=== PATIENT | male | born 1985 | race Two or more races ===

== ENCOUNTER 2018-01-31 19:29 | Inpatient (IN) | payer MEDICAID, OTHER ==
[~2018-01-31] VITALS: Ht 162.6 cm; Wt 65.6 kg
[2018-01-31 22:27] LABS: Eosinophils # (auto) 0.4 uL; Hemoglobin 8.3 g/dL (13.5-17.5); Lymphocytes # (auto) 2.6 uL; Neutrophils # (auto) 4.8 uL
[2018-01-31 22:29] LABS: Basophils # (auto) 0 uL; Basophils % (auto) 0.5 % (0.0-2.0); Eosinophils % (auto) 4.9 % (0.0-7.0); Hematocrit 25.1 % (41.0-53.0); Lymphocytes % (auto) 28.9 % (10.0-50.0); Mean Corpuscular Hemoglobin 28.9 pg (28.0-32.0); Mean Corpuscular Hgb Conc. 33.2 g/dL (32.0-36.0); Mean Corpuscular Volume 87.1 fL (80.0-100.0); Monocytes # (auto) 1.1 uL; Monocytes % (auto) 12.1 % (0.0-12.0); Neutrophils % (auto) 53.6 % (37.0-80.0); Nucleated Red Blood Cells % 0.6 %; Platelet Count (auto) 299 10^3/uL (140-450); Red Blood Cells 2.88 10^6/uL (4.5-5.90)
[2018-01-31 22:53] LABS: Alanine Aminotransferase 18 U/L (16-61); Albumin 3.9 g/dL (3.4-5.0); Alkaline Phosphatase 47 U/L (45-117); Anion Gap 18 (5-15); Aspartate Aminotransferase 7 U/L (15-37); BUN/Creatinine Ratio 4.2; Bilirubin, Total 0.4 mg/dL (0.2-1.0); Calcium 9.3 mg/dL (8.5-10.1); Carbon Dioxide 19 mmol/L (21-32); Chloride 106 mmol/L (98-107); GFR African American 3 mL/min; GFR Non-African American 3 mL/min; Glucose 94 mg/dL (74-106); Potassium 5.3 mmol/L (3.5-5.1); Sodium 143 mmol/L (136-145); Total Protein 7.4 g/dL (6.4-8.2)
[2018-01-31 23:03] LABS: Blood Urea Nitrogen 95 mg/dL (7-18)
[2018-02-01] MEDS ORDERED: SODIUM POLYSTYRENE SULF 15GM/60ML SUSP PO ONE (03:15)
[2018-02-01] MEDS ORDERED: TEMAZEPAM 15 MG CAP PO PRN (03:15)
[2018-02-01] MEDS ORDERED: ACETAMINOPHEN 325 MG TAB PO PRN (03:15)
[2018-02-01] MEDS ORDERED: ONDANSETRON HCL 4 MG/2 ML VIAL IV PRN (03:15)
[2018-02-01 04:02] LABS: Urine Bacteria NONE SEEN /hpf (None Seen); Urine Blood Negative /uL (Negative); Urine Specific Gravity 1.008 (1.001-1.035); Urine WBC 1 /hpf (0 - 3)
[2018-02-01] MEDS: FERROUS SULFATE 325 MG TAB PO SCH ×2 (08:13→17:38)
[2018-02-01] MEDS: PANTOPRAZOLE 40 MG TAB PO SCH (08:14)
[2018-02-01] MEDS ORDERED: SODIUM CHL 0.9% 1000 ML BAG XX ONE (08:45)
[2018-02-01] MEDS ORDERED: EPOETIN ALFA 2,000 UNIT/1 ML VIAL IV ONE (08:45)
[2018-02-01] MEDS ORDERED: EPOETIN ALFA 3,000 UNIT/1 ML VIAL IV ONE (08:45)
[2018-02-01] MEDS ORDERED: LISINOPRIL 5 MG TAB PO SCH (10:00)
[2018-02-01] MEDS: CARVEDILOL 12.5 MG TAB PO SCH ×2 (10:00→21:35)
[2018-02-01] MEDS: FUROSEMIDE 40 MG TAB PO SCH (10:00)
[2018-02-01 10:45] VITALS: BP 113/79
[2018-02-01 13:00] VITALS: BP 132/75
[2018-02-01] MEDS ORDERED: CARV25TA PO (15:06)
[2018-02-01] MEDS ORDERED: LISI-275 PO (15:06)
[2018-02-01] MEDS ORDERED: FER300LQ PO (15:06)
[2018-02-01] MEDS ORDERED: FURO40TA4 PO (15:06)
[2018-02-01 16:06] VITALS: BP 140/74
[2018-02-01 17:05] VITALS: BP 147/78
[2018-02-01 20:00] VITALS: BP 137/75
[2018-02-01 22:06] VITALS: BP 137/75
[2018-02-02 05:44] VITALS: BP 112/66
[2018-02-02 06:34] LABS: Basophils # (auto) 0 uL; Basophils % (auto) 0.5 % (0.0-2.0); Eosinophils # (auto) 0.4 uL; Eosinophils % (auto) 6.2 % (0.0-7.0); Hematocrit 30.1 % (41.0-53.0); Hemoglobin 10.2 g/dL (13.5-17.5); Lymphocytes # (auto) 1.3 uL; Mean Corpuscular Hemoglobin 29.1 pg (28.0-32.0); Mean Corpuscular Hgb Conc. 33.7 g/dL (32.0-36.0); Mean Corpuscular Volume 86.3 fL (80.0-100.0); Monocytes # (auto) 0.8 uL; Monocytes % (auto) 10.7 % (0.0-12.0); Neutrophils # (auto) 4.5 uL; Neutrophils % (auto) 63.6 % (37.0-80.0); Nucleated Red Blood Cells % 0.5 %; Platelet Count (auto) 313 10^3/uL (140-450); Potassium 4.5 mmol/L (3.5-5.1); Red Blood Cells 3.49 10^6/uL (4.5-5.90); White Blood Cell 7.1 10^3/uL (4.4-10.8)
[2018-02-02 06:47] LABS: BUN/Creatinine Ratio 3.4; Calcium 9.3 mg/dL (8.5-10.1)
[2018-02-02 08:19] VITALS: BP 104/65
[2018-02-02] MEDS: CARVEDILOL 12.5 MG TAB PO SCH (10:00)
[2018-02-02] MEDS: FUROSEMIDE 40 MG TAB PO SCH (10:00)
[2018-02-02] MEDS: FERROUS SULFATE 325 MG TAB PO SCH ×2 (10:02→18:00)
[2018-02-02] MEDS: PANTOPRAZOLE 40 MG TAB PO SCH (10:02)
[2018-02-02 12:14] VITALS: BP 119/74
[2018-02-02 17:17] VITALS: BP 115/72
[2018-02-02 20:00] VITALS: BP 135/71
[2018-02-02 22:23] VITALS: BP 135/71
[2018-02-03 05:41] VITALS: BP 134/73
[2018-02-03 06:55] LABS: BUN/Creatinine Ratio 4.2; Potassium 4.8 mmol/L (3.5-5.1)
[2018-02-03 07:00] LABS: Phosphorus 9.6 mg/dL (2.5-4.90)
[2018-02-03] MEDS: FERROUS SULFATE 325 MG TAB PO SCH ×2 (08:00→17:18)
[2018-02-03 08:42] VITALS: BP 131/86
[2018-02-03] MEDS: amLODIPine BESYLATE 5 MG TAB PO SCH (08:43)
[2018-02-03] MEDS: PANTOPRAZOLE 40 MG TAB PO SCH (08:43)
[2018-02-03] MEDS ORDERED: SODIUM CHL 0.9% 1000 ML BAG XX ONE (09:30)
[2018-02-03] MEDS: SEVELAMER 800 MG TAB PO SCH ×2 (12:39→17:18)
[2018-02-03 12:41] VITALS: BP 122/73
[2018-02-03 17:03] VITALS: BP 126/74
[2018-02-03 21:52] VITALS: BP 136/84
[2018-02-04 04:19] LABS: Basophils # (auto) 0.1 uL; Basophils % (auto) 0.7 % (0.0-2.0); Eosinophils # (auto) 0.6 uL; Eosinophils % (auto) 7.8 % (0.0-7.0); Hematocrit 31.8 % (41.0-53.0); Hemoglobin 10.4 g/dL (13.5-17.5); Lymphocytes # (auto) 1.9 uL; Lymphocytes % (auto) 24.9 % (10.0-50.0); Mean Corpuscular Hemoglobin 28.1 pg (28.0-32.0); Mean Corpuscular Hgb Conc. 32.7 g/dL (32.0-36.0); Mean Corpuscular Volume 85.9 fL (80.0-100.0); Monocytes # (auto) 0.9 uL; Monocytes % (auto) 11.6 % (0.0-12.0); Neutrophils # (auto) 4.3 uL; Platelet Count (auto) 283 10^3/uL (140-450); Red Cell Distribution Width 19.4 % (11.8-14.3); White Blood Cell 7.8 10^3/uL (4.4-10.8)
[2018-02-04 04:37] VITALS: BP 126/68
[2018-02-04 04:49] LABS: Albumin 3.9 g/dL (3.4-5.0); BUN/Creatinine Ratio 3.9; Bilirubin, Total 0.5 mg/dL (0.2-1.0); Calcium 9.1 mg/dL (8.5-10.1); Total Protein 7.9 g/dL (6.4-8.2)
[2018-02-04 08:50] VITALS: BP 119/74
[2018-02-04] MEDS: PANTOPRAZOLE 40 MG TAB PO SCH (09:03)
[2018-02-04] MEDS: SEVELAMER 800 MG TAB PO SCH ×3 (09:03→17:32)
[2018-02-04] MEDS: FERROUS SULFATE 325 MG TAB PO SCH ×2 (09:04→17:32)
[2018-02-04] MEDS: amLODIPine BESYLATE 5 MG TAB PO SCH (09:04)
[2018-02-04 12:00] VITALS: BP 133/71
[2018-02-04 16:44] VITALS: BP 148/95
[2018-02-04 21:30] VITALS: BP 128/75
[2018-02-05 05:02] VITALS: BP 128/71
[2018-02-05 05:32] LABS: Basophils # (auto) 0 uL; Basophils % (auto) 0.5 % (0.0-2.0); Eosinophils # (auto) 0.7 uL; Eosinophils % (auto) 7.9 % (0.0-7.0); Hematocrit 30.8 % (41.0-53.0); Lymphocytes # (auto) 1.8 uL; Mean Corpuscular Hemoglobin 28.2 pg (28.0-32.0); Mean Corpuscular Hgb Conc. 32.6 g/dL (32.0-36.0); Mean Corpuscular Volume 86.5 fL (80.0-100.0); Monocytes % (auto) 11.6 % (0.0-12.0); Neutrophils # (auto) 5.1 uL; Platelet Count (auto) 259 10^3/uL (140-450); Red Blood Cells 3.56 10^6/uL (4.5-5.90); White Blood Cell 8.6 10^3/uL (4.4-10.8)
[2018-02-05 05:52] LABS: Red Cell Distribution Width 20.4 % (11.8-14.3)
[2018-02-05 05:56] LABS: BUN/Creatinine Ratio 4.6; Calcium 9.7 mg/dL (8.5-10.1); Potassium 4.3 mmol/L (3.5-5.1)
[2018-02-05 08:00] VITALS: BP 130/84
[2018-02-05] MEDS: SEVELAMER 800 MG TAB PO SCH ×3 (08:08→18:09)
[2018-02-05] MEDS: FERROUS SULFATE 325 MG TAB PO SCH ×2 (08:08→18:09)
[2018-02-05 09:16] VITALS: BP 130/84
[2018-02-05] MEDS: PANTOPRAZOLE 40 MG TAB PO SCH (10:42)
[2018-02-05] MEDS: amLODIPine BESYLATE 5 MG TAB PO SCH (10:44)
[2018-02-05 13:00] VITALS: BP 158/87
[2018-02-05 14:12] LABS: Hepatitis A Ab IgM Negative; Hepatitis B Core IgM Negative; Hepatitis B Surface Antigen Negative (Negative); Hepatitis C Antibody Negative (Negative)
[2018-02-05] MEDS ORDERED: AML5T PO (16:08)
[2018-02-05] MEDS ORDERED: FER325T PO (16:08)
[2018-02-05] MEDS ORDERED: SEVE800T PO (16:08)
[2018-02-05 17:00] VITALS: BP 153/97
[2018-02-05 22:00] VITALS: BP 144/85
[2018-02-06 05:00] VITALS: BP 125/71
[2018-02-06] MEDS: FERROUS SULFATE 325 MG TAB PO SCH ×2 (07:43→19:14)
[2018-02-06] MEDS: PANTOPRAZOLE 40 MG TAB PO SCH (07:43)
[2018-02-06] MEDS: SEVELAMER 800 MG TAB PO SCH ×3 (07:44→19:14)
[2018-02-06 09:00] VITALS: BP 150/91
[2018-02-06] MEDS: amLODIPine BESYLATE 5 MG TAB PO SCH (09:03)
[2018-02-06] MEDS ORDERED: SODIUM CHL 0.9% 1000 ML BAG XX ONE (11:15)
[2018-02-06] MEDS ORDERED: EPOETIN ALFA 10,000 UNIT/1 ML VIAL IV ONE (11:15)
[2018-02-06 12:26] VITALS: BP 123/64
[2018-02-06 17:10] VITALS: BP 125/71
[2018-02-06 22:00] VITALS: BP 128/75
[2018-02-07 05:30] VITALS: BP 120/73
[2018-02-07 06:15] LABS: BUN/Creatinine Ratio 4.3; Calcium 9.1 mg/dL (8.5-10.1); Potassium 4.3 mmol/L (3.5-5.1)
[2018-02-07] MEDS: SEVELAMER 800 MG TAB PO SCH ×3 (08:14→17:28)
[2018-02-07] MEDS: FERROUS SULFATE 325 MG TAB PO SCH ×2 (08:14→17:27)
[2018-02-07 09:00] VITALS: BP 113/73
[2018-02-07] MEDS: amLODIPine BESYLATE 5 MG TAB PO SCH (10:00)
[2018-02-07] MEDS: CALCITRIOL 0.25 MCG CAP PO SCH (10:28)
[2018-02-07] MEDS: PANTOPRAZOLE 40 MG TAB PO SCH (10:29)
[2018-02-07 13:00] VITALS: BP 126/76
[2018-02-07 17:00] VITALS: BP 126/73
[2018-02-07 21:30] VITALS: BP 140/91
[2018-02-08 05:00] VITALS: BP 124/69
[2018-02-08 06:44] LABS: Potassium 4.1 mmol/L (3.5-5.1)
[2018-02-08 06:55] LABS: Albumin 3.8 g/dL (3.4-5.0); BUN/Creatinine Ratio 5.1; Bilirubin, Total 0.9 mg/dL (0.2-1.0); Calcium 9.8 mg/dL (8.5-10.1); Phosphorus 8.1 mg/dL (2.5-4.90); Total Protein 7.7 g/dL (6.4-8.2)
[2018-02-08] MEDS: SEVELAMER 800 MG TAB PO SCH ×3 (07:35→17:41)
[2018-02-08] MEDS: FERROUS SULFATE 325 MG TAB PO SCH ×2 (07:35→17:41)
[2018-02-08 08:00] VITALS: BP 131/89
[2018-02-08] MEDS ORDERED: EPOETIN ALFA 10,000 UNIT/1 ML VIAL IV ONE (09:45)
[2018-02-08] MEDS: PANTOPRAZOLE 40 MG TAB PO SCH (10:00)
[2018-02-08] MEDS: CALCITRIOL 0.25 MCG CAP PO SCH (10:00)
[2018-02-08] MEDS: amLODIPine BESYLATE 5 MG TAB PO SCH (10:00)
[2018-02-08 12:00] VITALS: BP 128/76
[2018-02-08 16:00] VITALS: BP 120/76
[2018-02-08 21:30] VITALS: BP 138/76
[2018-02-09 05:00] VITALS: BP 119/66
[2018-02-09] MEDS: SEVELAMER 800 MG TAB PO SCH ×3 (07:37→17:47)
[2018-02-09] MEDS: FERROUS SULFATE 325 MG TAB PO SCH ×2 (07:37→17:47)
[2018-02-09 09:01] VITALS: BP 132/74
[2018-02-09] MEDS ORDERED: CAL025T PO (09:11)
[2018-02-09] MEDS ORDERED: AML5T PO (09:11)
[2018-02-09] MEDS: CALCITRIOL 0.25 MCG CAP PO SCH (09:50)
[2018-02-09] MEDS: PANTOPRAZOLE 40 MG TAB PO SCH (09:50)
[2018-02-09] MEDS: amLODIPine BESYLATE 5 MG TAB PO SCH (09:50)
[2018-02-09] MEDS ORDERED: SODIUM CHL 0.9% 1000 ML BAG XX ONE (10:15)
[2018-02-09] MEDS ORDERED: EPOETIN ALFA 4,000 UNIT/ML VL IV ONE (11:00)
[2018-02-09 13:00] VITALS: BP 126/75
[2018-02-09 17:00] VITALS: BP 160/66
[2018-02-09 21:51] VITALS: BP 147/84
[2018-02-10 05:00] VITALS: BP 126/71
[2018-02-10 08:17] VITALS: BP 120/79
[2018-02-10 09:01] VITALS: BP 120/79
[2018-02-10] MEDS: SEVELAMER 800 MG TAB PO SCH ×3 (09:07→18:12)
[2018-02-10] MEDS: FERROUS SULFATE 325 MG TAB PO SCH ×2 (09:07→18:12)
[2018-02-10] MEDS: amLODIPine BESYLATE 5 MG TAB PO SCH (09:58)
[2018-02-10] MEDS: PANTOPRAZOLE 40 MG TAB PO SCH (09:58)
[2018-02-10] MEDS: CALCITRIOL 0.25 MCG CAP PO SCH (09:58)
[2018-02-10 11:58] VITALS: BP 125/86
[2018-02-10 16:29] VITALS: BP 146/94
[2018-02-10 22:01] VITALS: BP 136/79
[2018-02-11 05:00] VITALS: BP 117/75
[2018-02-11 07:01] LABS: BUN/Creatinine Ratio 3.8; Calcium 9.8 mg/dL (8.5-10.1); Potassium 4.2 mmol/L (3.5-5.1)
[2018-02-11] MEDS: PANTOPRAZOLE 40 MG TAB PO SCH (09:16)
[2018-02-11] MEDS: amLODIPine BESYLATE 5 MG TAB PO SCH (09:16)
[2018-02-11] MEDS: CALCITRIOL 0.25 MCG CAP PO SCH (09:16)
[2018-02-11] MEDS: SEVELAMER 800 MG TAB PO SCH ×3 (09:16→17:33)
[2018-02-11] MEDS: FERROUS SULFATE 325 MG TAB PO SCH ×2 (09:17→17:33)
[2018-02-11 13:00] VITALS: BP 125/78
[2018-02-11 17:00] VITALS: BP 138/74
[2018-02-11 22:00] VITALS: BP 143/86
[2018-02-12 05:55] VITALS: BP 125/76
[2018-02-12] MEDS: FERROUS SULFATE 325 MG TAB PO SCH ×2 (08:46→18:00)
[2018-02-12] MEDS: SEVELAMER 800 MG TAB PO SCH ×3 (08:46→18:00)
[2018-02-12 09:00] VITALS: BP 122/91
[2018-02-12] MEDS: PANTOPRAZOLE 40 MG TAB PO SCH (09:42)
[2018-02-12] MEDS: CALCITRIOL 0.25 MCG CAP PO SCH (09:42)
[2018-02-12] MEDS: amLODIPine BESYLATE 5 MG TAB PO SCH (09:43)
[2018-02-12] MEDS ORDERED: SODIUM CHL 0.9% 1000 ML BAG XX ONE (15:00)
[2018-02-12 16:47] VITALS: BP 140/76
[2018-02-12 19:30] VITALS: BP 144/90
== END 2018-02-12 19:50 | disposition home or self-care (01) | DRG 470 ==
LOC: EDBD 19:29 → ER 19:29 → OVERFLOW 19:30 → WEST WING 02-01 12:37
PROVIDERS: ADMIT Nurse Practitioner; ATTEND Internal Medicine
PROC: 5A1D70Z Performance of Urinary Filtration, Intermittent, Less than 6 Hours Per Day (ICD-10-PCS; principal; 2018-02-01)
PROC: 5A1D70Z Performance of Urinary Filtration, Intermittent, Less than 6 Hours Per Day (ICD-10-PCS; 2018-02-03)
PROC: 5A1D70Z Performance of Urinary Filtration, Intermittent, Less than 6 Hours Per Day (ICD-10-PCS; 2018-02-06)
PROC: 5A1D70Z Performance of Urinary Filtration, Intermittent, Less than 6 Hours Per Day (ICD-10-PCS; 2018-02-08)
PROC: 5A1D70Z Performance of Urinary Filtration, Intermittent, Less than 6 Hours Per Day (ICD-10-PCS; 2018-02-09)
PROC: 5A1D70Z Performance of Urinary Filtration, Intermittent, Less than 6 Hours Per Day (ICD-10-PCS; 2018-02-12)
DX: I12.0 Hypertensive chronic kidney disease with stage 5 chronic kidney disease or end stage renal disease (principal); E87.2 Acidosis; E83.39 Other disorders of phosphorus metabolism; N18.6 End stage renal disease; E87.5 Hyperkalemia; Z99.2 Dependence on renal dialysis; D63.8 Anemia in other chronic diseases classified elsewhere; N25.81 Secondary hyperparathyroidism of renal origin; K21.9 Gastro-esophageal reflux disease without esophagitis; Z91.19 Patient's noncompliance with other medical treatment and regimen; Z88.8 Allergy status to other drugs, medicaments and biological substances; Z91.041 Radiographic dye allergy status
CPT/HCPCS: 36415; 71045; 80048; 80053; 80074; 81001; 82306; 83970; 84100; 84484; 85025; 87081; 90935; 93005; J0885; J1642; Q4081

== ENCOUNTER 2018-04-04 19:50 | Inpatient (IN) | payer MEDICAID ==
[~2018-04-04] VITALS: Ht 165.1 cm; Wt 65.3 kg
[~2018-04-04 19:50] MED LIST: AML5T PO; CAL025T PO; FER325T PO; SEVE800T PO
[2018-04-04 21:06] LABS: Basophils # (auto) 0.1 uL; Basophils % (auto) 0.7 % (0.0-2.0); Eosinophils # (auto) 0.6 uL; Eosinophils % (auto) 7.1 % (0.0-7.0); Hematocrit 28.1 % (41.0-53.0); Hemoglobin 9.4 g/dL (13.5-17.5); Lymphocytes % (auto) 24.9 % (10.0-50.0); Mean Corpuscular Hemoglobin 29.8 pg (28.0-32.0); Mean Corpuscular Hgb Conc. 33.3 g/dL (32.0-36.0); Mean Corpuscular Volume 89.4 fL (80.0-100.0); Monocytes # (auto) 0.7 uL; Monocytes % (auto) 9.2 % (0.0-12.0); Neutrophils # (auto) 4.7 uL; Neutrophils % (auto) 58.1 % (37.0-80.0); Platelet Count (auto) 230 10^3/uL (140-450); Red Blood Cells 3.15 10^6/uL (4.5-5.90); White Blood Cell 8.1 10^3/uL (4.4-10.8)
[2018-04-04 21:11] LABS: Red Cell Distribution Width 20.2 % (11.8-14.3)
[2018-04-04 21:20] LABS: INR 1.07 (0.9-1.15); Partial Thromboplastin Time 30.4 sec (23.78-33.04); Prothrombin Time 11.4 sec (9.27-12.13)
[2018-04-04 21:23] LABS: Albumin 3.5 g/dL (3.4-5.0); Calcium 7.8 mg/dL (8.5-10.1)
[2018-04-04 21:26] LABS: BUN/Creatinine Ratio 5.6; Bilirubin, Total 0.3 mg/dL (0.2-1.0); Total Protein 6.8 g/dL (6.4-8.2)
[2018-04-04 21:32] LABS: Magnesium 2.6 mg/dL (1.6-2.6)
[2018-04-04 21:37] LABS: Potassium 6.4 mmol/L (3.5-5.1)
[2018-04-04] MEDS ORDERED: SODIUM BICARBONATE 8.4 % INJ 50ML VIAL IV ONE (22:00)
[2018-04-04] MEDS ORDERED: CALCIUM GLUC 4.65meq/50ml D5AE 50 ML IV ONE (22:00)
[2018-04-04] MEDS ORDERED: DEXTROSE (50%) 50ML SYRG IV ONE (22:00)
[2018-04-04] MEDS ORDERED: InsuLIN REG 1unit/0.01ml Soln (100units/ml) IV ONE (22:00)
[2018-04-04] MEDS ORDERED: SODIUM BICARBONATE 8.4% INJ 50ML SYRINGE ONE (23:08)
[2018-04-04] MEDS ORDERED: SODIUM POLYSTYRENE SULF 15 GM POWDER PO ONE (23:30)
[2018-04-04] MEDS ORDERED: TEMAZEPAM 15 MG CAP PO PRN (23:30)
[2018-04-04] MEDS ORDERED: NITROGLYCERIN 0.4 MG SL TAB SL PRN (23:30)
[2018-04-04] MEDS ORDERED: ONDANSETRON HCL 4 MG/2 ML VIAL IV PRN (23:30)
[2018-04-04] MEDS ORDERED: MORPHINE SULFATE 4 MG/ML SYR/VIAL IV PRN (23:30)
[2018-04-05] VITALS (7 sets, daily range): BP systolic 147–183; BP diastolic 78–97
[2018-04-05] MEDS ORDERED: DEXTROSE 50% SYRINGE 50 ML IV ONE (00:08)
[2018-04-05] MEDS ORDERED: DEXTROSE (50%) 50ML SYRG IV ONE (00:30)
[2018-04-05] MEDS ORDERED: FERR1TAB17 PO (01:46)
[2018-04-05] MEDS ORDERED: FURO80TA3 PO (01:46)
[2018-04-05] MEDS ORDERED: PNEUMOCOCCAL VACC POLYS 25 MCG/0.5 ML VIAL IM ONE (03:30)
[2018-04-05] MEDS ORDERED: INFLUENZA QUAD 2018-2019 0.5 ML SYRG IM ONE (03:30)
[2018-04-05 07:35] LABS: Basophils # (auto) 0.1 uL; Eosinophils # (auto) 0.4 uL; Eosinophils % (auto) 5.8 % (0.0-7.0); Hematocrit 29.8 % (41.0-53.0); Hemoglobin 9.4 g/dL (13.5-17.5); Lymphocytes # (auto) 1.6 uL; Lymphocytes % (auto) 21.7 % (10.0-50.0); Mean Corpuscular Hemoglobin 28.1 pg (28.0-32.0); Mean Corpuscular Hgb Conc. 31.4 g/dL (32.0-36.0); Mean Corpuscular Volume 89.6 fL (80.0-100.0); Monocytes # (auto) 0.7 uL; Monocytes % (auto) 8.8 % (0.0-12.0); Neutrophils # (auto) 4.7 uL; Neutrophils % (auto) 62.7 % (37.0-80.0); Nucleated Red Blood Cells % 0.1 %; Platelet Count (auto) 228 10^3/uL (140-450); Red Blood Cells 3.33 10^6/uL (4.5-5.90); Red Cell Distribution Width 19.7 % (11.8-14.3); White Blood Cell 7.6 10^3/uL (4.4-10.8)
[2018-04-05 07:47] LABS: Albumin 3.4 g/dL (3.4-5.0); BUN/Creatinine Ratio 5.5; Calcium 7.5 mg/dL (8.5-10.1)
[2018-04-05 07:50] LABS: Bilirubin, Total 0.4 mg/dL (0.2-1.0); Total Protein 6.6 g/dL (6.4-8.2)
[2018-04-05 07:52] LABS: Potassium 6.7 mmol/L (3.5-5.1)
[2018-04-05] MEDS ORDERED: FERROUS SULFATE 325 MG TAB PO SCH (08:00)
[2018-04-05] MEDS ORDERED: SODIUM CHL 0.9% 1000 ML BAG XX ONE (08:30)
[2018-04-05] MEDS ORDERED: EPOETIN ALFA 10,000 UNIT/1 ML VIAL IV ONE (08:30)
[2018-04-05] MEDS: SEVELAMER 800 MG TAB PO SCH ×2 (09:11→12:00)
[2018-04-05] MEDS ORDERED: PANTOPRAZOLE 40 MG TAB PO SCH (10:00)
[2018-04-05] MEDS ORDERED: amLODIPine BESYLATE 5 MG TAB PO SCH (10:00)
== END 2018-04-05 15:33 | disposition home or self-care (01) | DRG 425 ==
LOC: ER 19:50 → CENTRAL 23:57 → TELE-CENTR 23:58
PROVIDERS: ADMIT Nurse Practitioner; ATTEND Internal Medicine
PROC: 5A1D70Z Performance of Urinary Filtration, Intermittent, Less than 6 Hours Per Day (ICD-10-PCS; principal; 2018-04-04)
DX: E87.5 Hyperkalemia (principal); I13.2 Hypertensive heart and chronic kidney disease with heart failure and with stage 5 chronic kidney disease, or end stage renal disease; E87.2 Acidosis; N18.6 End stage renal disease; D63.1 Anemia in chronic kidney disease; I50.43 Acute on chronic combined systolic (congestive) and diastolic (congestive) heart failure; Z82.49 Family history of ischemic heart disease and other diseases of the circulatory system; Z99.2 Dependence on renal dialysis
CPT/HCPCS: 36415; 71045; 80053; 82962; 83735; 83880; 84484; 85025; 85610; 85730; 87081; 90935; 93930; 94761; 96365; 96375; J0610; J0885; J1815